=== PATIENT | female | born 1955 | race Caucasian/White ===

== ENCOUNTER → 2021-05-20 | Day surgery (SDC) | payer OTHER ==
[~2021-05-20] VITALS: Ht 162.6 cm; Wt 40.0 kg
[~2021-05-20] MED LIST: ATARAX25 MG PO; AZITHROMYCIN250 MG PO; BREO ELLIPTA 11 EACH PO; K-DUR20 MEQ PO; LACTINEX1 EACH PO; LEVAQUIN500 MG PO; LIPITOR20 MG PO; MEDROL 4MG DOSEP4 MG PO; PREDNISONE 20MG20 MG PO; PRILOSEC20 MG PO; SINGULAIR10 MG PO; SPIRIVA18 MCG PO; TYLENOL #31 EACH PO; VENTOLIN (2.5 MG/3 M NEB; VENTOLIN HFA IN18 GM PO; VICODIN 10/3251 EACH PO; VOLTAREN **OUT75 MG PO
== END | disposition home or self-care (01) ==
LOC: FAS 08:13
DX: R10.13 Epigastric pain (principal); K31.9 Disease of stomach and duodenum, unspecified; K29.50 Unspecified chronic gastritis without bleeding; D12.7 Benign neoplasm of rectosigmoid junction; D12.4 Benign neoplasm of descending colon; K44.9 Diaphragmatic hernia without obstruction or gangrene; K64.8 Other hemorrhoids; K64.4 Residual hemorrhoidal skin tags; K21.9 Gastro-esophageal reflux disease without esophagitis; J44.9 Chronic obstructive pulmonary disease, unspecified; M06.9 Rheumatoid arthritis, unspecified; E78.00 Pure hypercholesterolemia, unspecified; Z87.19 Personal history of other diseases of the digestive system; Z80.0 Family history of malignant neoplasm of digestive organs; Z86.010 Personal history of colon polyps; Z90.710 Acquired absence of both cervix and uterus; Z72.0 Tobacco use
CPT/HCPCS: J2250; J2704; J7120